=== PATIENT | male | born 1940 | race Caucasian/White ===

== ENCOUNTER 2016-09-18 02:03 | Inpatient (IN) | payer OTHER ==
[2016-09-13 10:22] LABS: URINE MICRO REVIEW NEEDED? NO; URINE SOURCE CLEAN CATCH
[2016-09-13 10:22] LABS: MANUAL DIFF NEEDED? NO
[2016-09-13 10:33] LABS: BASO% 0.4 % (0.0-0.8); EOS% 1.9 % (0.0-10.0); HEMATOCRIT 48.9 % (42.0-52.0); HEMOGLOBIN 16.8 g/dL (14.0-18.0); LYMPH% 26.9 % (20.5-51.1); MCH 31.2 PG (27-31); MCHC 34.4 g/dL (33-37); MCV 90.7 FL (81-99); MONO# 0.66 X1000 (0.11-0.59); MONO% 12.7 % (1.7-9.3); MPV 9.7 FL (7.4-10.4); NEUT% 58.1 % (42.2-75.2); PLT 192 X1000 (130-400); RBC 5.39 XMIL (4.7-6.1)
[2016-09-13 10:34] LABS: BILIRUBIN URINE NEGATIVE (NEGATIVE); BLOOD URINE NEGATIVE (NEGATIVE); COLOR YELLOW; GLUCOSE URINE NEGATIVE (NEGATIVE); LEUKOCYTES URINE NEGATIVE (NEGATIVE); NITRITE URINE NEGATIVE (NEGATIVE); PROTEIN URINE TRACE mg/dL (NEGATIVE); SP GRAVITY URINE 1.024; TURBIDITY URINE CLEAR (CLEAR); UROBILINOGEN URINE NORMAL (NORMAL)
[2016-09-13 10:36] LABS: UR EPITHELIAL CELLS <10 /HPF (<10); URINE BACTERIA NEGATIVE /HPF; URINE RBC <10 /HPF (<10); URINE WBC <10 /HPF (<10)
--- NOTE | 2016-09-13 10:36 | EKG Report ---
Test Performed on : 09/13/2016 10:01:49 AM Test Reason : PAT Blood Pressure : / mmHG Vent. Rate : 061 BPM Atrial Rate : 061 BPM P-R Int : 146 ms QRS Dur : 102 ms QT Int : 388 ms P-R-T Axes : 060 -03 007 degrees QTc Int : 390 ms Normal sinus rhythm. Minimal voltage criteria for LVH, may be normal variant Borderline ECG When compared with ECG of 19-NOV-2013 06:54, T wave inversion less evident in III T wave amplitude has increased in V1 Confirmed by Nile Jung DO ([id number]) on 09/16/2016 3:56:25 PM
[2016-09-13 10:40] LABS: INR 1.03; PROTIME 10.9 Seconds (9.2-11.7); PTT 25.9 Seconds (22.0-36.0)
[2016-09-13 10:45] LABS: CALCIUM 9.4 mg/dL (8.8-10.2); POTASSIUM 4.4 mmol/L (3.5-5.1)
[2016-09-18] MEDS ORDERED: LYRICA ONE (06:06)
[2016-09-18] MEDS ORDERED: PEPCID ONE (06:06)
[2016-09-18] MEDS ORDERED: CELEBREX ONE (06:06)
[2016-09-18] MEDS ORDERED: LR 1,000 ML ONE ×2 (06:06→10:45)
[2016-09-18] MEDS ORDERED: REGLAN ONE (06:06)
[2016-09-18] MEDS ORDERED: COLACE ONE (06:06)
[2016-09-18] MEDS ORDERED: KEFZOL 2 GM/D5W 50 ML ONE (06:07)
[2016-09-18] MEDS ORDERED: CYKLOKAPRON 1,000 MG/NS 100 ML ONE (06:40)
[2016-09-18] MEDS ORDERED: TORADOL ONE (07:10)
[2016-09-18] MEDS ORDERED: SODIUM CHLORIDE 0.9% ONE (07:11)
[2016-09-18] MEDS ORDERED: DURAMORPH ONE (07:11)
[2016-09-18] MEDS ORDERED: NEOSPORIN G.U. IRRIGANT ONE (07:11)
[2016-09-18] MEDS ORDERED: MORPHINE IV PRN (07:11)
[2016-09-18] MEDS ORDERED: MARCAINE 0.25% PF/EPI 1:200,000 ONE (07:11)
[2016-09-18] MEDS ORDERED: EXPAREL 1.3% ONE (07:12)
--- NOTE | 2016-09-18 07:17 | HISTORY AND PHYSICAL ---
CHIEF COMPLAINT: Right hip pain. HISTORY OF PRESENT ILLNESS: Mr. Kelly is a 76-year-old white male with complaint of right hip pain. Mr. Kelly states that his right hip pain has been problemsome for about 3 years now. His hip pain is affecting his activities of daily living. Images obtained of his hip reveal images consistent with advanced degenerative joint disease. He is being admitted to the hospital today for a right total hip arthroplasty. PAST MEDICAL HISTORY: Hypertension, atrial fibrillation, acid reflux, benign prostatic hypertrophy, and degenerative joint disease. SURGICAL HISTORY: Cardiac ablation, transurethral prostate resection, cataract surgery, right rotator cuff repair, bilateral total knee arthroplasty, and laminectomy. FAMILY HISTORY: Noncontributory. SOCIAL HISTORY: He is . He denies using tobacco. He reports using alcohol occasionally. CURRENT MEDICATIONS: 1. Crestor 10 mg p.o. at bedtime. 2. Lisinopril 60 mg p.o. b.i.d. 3. Diltiazem ER 240 mg p.o. b.i.d. 4. Hydrochlorothiazide 12.5 mg p.o. q.a.m. 5. Aspirin 81 mg p.o. daily. ALLERGIES: No known drug allergies. PRIMARY CARE PROVIDER: Dr. Khurram Kelly Jr. REVIEW OF SYSTEMS: HEENT: The patient reports wearing glasses. He denies any upper respiratory problems or any problem with ears, nose, throat. CARDIAC: The patient reports having cardiac ablation for atrial fibrillation in the past. He denies any heart problems since then. He denies any syncope or any chest pain. PULMONARY: The patient denies any pulmonary problems. He denies any coughing or wheezing. GASTROINTESTINAL: The patient reports having acid reflux. He denies any nausea, vomiting, diarrhea, or any other chronic GI disease. GENITOURINARY: The patient reports having a transurethral prostate resection in the past. He denies any urinary problems at this time. NEUROLOGICAL: The patient reports having bilateral feet numbness and tingling. He denies any other neurological deficits. MUSCULOSKELETAL: The patient reports having bilateral hip pain. PHYSICAL EXAMINATION: GENERAL: The patient is awake, sitting up in bed. He is articulate and able to answer questions appropriately. HEENT: Head is normocephalic, atraumatic. Pupils equal, round, and reactive to light. Nares patent. Throat without exudate. CARDIAC: S1-S2 auscultated. No murmur, rub, or gallop noted. LUNGS: Clear to auscultation bilaterally in all lung espino. GASTROINTESTINAL: Abdomen is soft, nontender, nondistended. Bowel sounds present in all quadrants. GENITOURINARY: Not examined. NEUROLOGICAL: The patient has some decreased sensation in his feet bilaterally, although he has good sensation to dull touch in all extremities. Cranial nerves 2-12 grossly intact. MUSCULOSKELETAL: On examination of the right hip, he has pain with palpation as well as passive range of motion of the right hip. IMPRESSION: Right hip osteoarthritis. PLAN: Right hip total hip arthroplasty, anterior. The risks, benefits, and alternatives of the surgery were discussed with the patient including risk of infection, anesthesia, bleeding, damage to blood vessels, nerves, tendons, ligaments, and other imponderables were discussed, and the patient agrees to proceed with surgery at this time. Dictated by HENRIQUE Vegas for Tom Nguyen MD
[2016-09-18] MEDS ORDERED: LR 500 ML ONE (10:45)
[2016-09-18] MEDS ORDERED: NS 1,000 ML ONE (10:55)
--- NOTE | 2016-09-18 11:21 | OPERATIVE NOTE ---
PROCEDURE DATE: 09/18/2016 PREOPERATIVE DIAGNOSIS: Degenerative joint disease, right hip. POSTOPERATIVE DIAGNOSIS: Degenerative joint disease, right hip. PROCEDURE: Right anterior hip replacement. SURGEON: Stefani Nguyen MD. ASSISTING: Terrell Ingram. ANESTHESIA: General. COMPLICATION: None. PROCEDURE IN DETAIL: This 76-year-old male presents for a right anterior hip replacement. Risks, benefits, and no guarantees were discussed, and he is willing to proceed. He was taken to the operating room and satisfactory anesthesia obtained. The right hip was prepped and draped in the usual sterile fashion. A time-out was taken to confirm operative site, procedure, and patient. An anterior approach to the right hip was undertaken through an incision starting roughly 1 cm lateral and distal to the anterior superior iliac spine, and carried distally for roughly 10-12 cm. The fascia of the tensor fascia john was identified and opened, and blunt dissection utilized along the inner membrane down to the anterior hip capsule. Retractors were placed over the superior and inferior aspect of the femoral neck, and the femoral capsule incised longitudinally. The superior capsule was excised for mobilization. Osteotomy was made roughly 8-10 mm above the lesser trochanter and the femoral head excised. Reaming of the acetabulum was undertaken up to a 59 reamer. A [employer] [place] coated 60 outer diameter cup was then impacted into the acetabulum under fluoroscopic guidance at roughly 5-10 degrees of anteversion and 45 degrees of abduction. This was fully seated with initial press-fit fixation. An additional 25 length screw was placed in the 12 o'clock position of the cup for additional security, followed by a 36 inner diameter 0 degree polyethylene liner. This was impacted with secure fixation. The [place] table was then used to externally rotate and extend the femur for broaching of the proximal femur. Sequential broaching up to a DePuy [place] size 16 stem was undertaken with good rotational and axial stability. High offset geometry was utilized with a +5, 36 head with good stability. The trial broach was removed. Then a size 16 high offset [place] stem impacted into the proximal femur with secure axial and rotational stability. A ceramic 36 head with a +5 neck taper was impacted on this and the hip reduced. Range of motion revealed no anterior or posterior instability and good zoroastrianism of leg lengths using the fluoroscopic imaging. The wound was copiously irrigated and drained with a Hemovac drain. The joint capsule and skin were injected with Exparel for pain management. The fascia of the tensor was repaired with a running 0 Vicryl, the subcutaneous with 2-0 Vicryl, and the skin with skin grace. Sterile dressings were applied. The patient was recovered from anesthesia and transferred to the recovery room in stable condition. No intraoperative complications were noted. Instrument count and sponge count were correct at the time of closure.
[2016-09-18] MEDS ORDERED: CYKLOKAPRON 1,000 MG in NS 100 ML IV ONE (13:30)
[2016-09-18] MEDS ORDERED: MORPHINE ONE (14:57)
[2016-09-18] MEDS ORDERED: DEMEROL ONE (14:58)
[2016-09-18] MEDS ORDERED: DIPRIVAN 1% ONE (14:59)
[2016-09-18] MEDS ORDERED: VERSED ONE (14:59)
[2016-09-18] MEDS ORDERED: FENTANYL ONE (15:01)
[2016-09-18] MEDS: KEFZOL 1 GM/D5W 50 ML IV SCH ×2 (15:12→22:40)
[2016-09-18] MEDS ORDERED: SODIUM CHLORIDE 0.9% 40 ML ONE (15:14)
[2016-09-18] MEDS ORDERED: NEOSTIGMINE ONE (15:14)
[2016-09-18] MEDS ORDERED: EPHEDRINE ONE (15:14)
[2016-09-18] MEDS ORDERED: NORCURON ONE (15:14)
[2016-09-18] MEDS ORDERED: DECADRON ONE (15:15)
[2016-09-18] MEDS ORDERED: OFIRMEV 1000 MG/ISOTONIC SOLN 100 ML ONE (15:15)
[2016-09-18] MEDS ORDERED: QUELICIN (DOSE) ONE (15:15)
[2016-09-18] MEDS ORDERED: ROBINUL ONE (15:15)
[2016-09-18] MEDS ORDERED: LR 2,000 ML ONE (15:15)
[2016-09-18] MEDS ORDERED: HESPAN 500 ML ONE (15:15)
[2016-09-18] MEDS ORDERED: XYLOCAINE-MPF 2% ONE (15:15)
[2016-09-18] MEDS: NORCO-10 PO PRN ×3 (15:16→22:51)
[2016-09-18] MEDS: ASPIRIN PO SCH (16:09)
[2016-09-18] MEDS: PRINIVIL PO SCH ×2 (16:10→21:02)
[2016-09-18] MEDS: CARDIZEM CD PO SCH ×2 (16:10→21:02)
[2016-09-18] MEDS: HYDROCHLOROTHIAZIDE PO SCH (16:10)
[2016-09-18] MEDS: COLACE PO SCH ×2 (16:11→21:01)
[2016-09-18] MEDS: NS 1,000 ML IV SCH ×2 (16:43→21:02)
[2016-09-18] MEDS ORDERED: CRESTOR PO SCH (21:00)
[2016-09-18] MEDS: PERIDEX MT SCH (21:01)
[2016-09-19] MEDS: NORCO-10 PO PRN ×3 (00:58→08:41)
[2016-09-19 05:41] LABS: HEMATOCRIT 32.5 % (42.0-52.0); HEMOGLOBIN 10.8 g/dL (14.0-18.0)
[2016-09-19] MEDS ORDERED: XARELTO PO SCH (06:00)
[2016-09-19 06:12] LABS: CALCIUM 7.8 mg/dL (8.8-10.2); POTASSIUM 4.1 mmol/L (3.5-5.1)
[2016-09-19] MEDS: HYDROCHLOROTHIAZIDE PO SCH (08:40)
[2016-09-19] MEDS: ASPIRIN PO SCH (08:41)
[2016-09-19] MEDS: COLACE PO SCH (08:41)
[2016-09-19] MEDS: PRINIVIL PO SCH (08:42)
[2016-09-19] MEDS: CARDIZEM CD PO SCH (08:42)
[2016-09-19] MEDS: PERIDEX MT SCH (08:42)
[2016-09-19] MEDS ORDERED: CELEBREX PO SCH (09:00)
[2016-09-19] MEDS: NS 1,000 ML IV SCH ×2 (09:04→16:01)
[2016-09-19 12:17] VITALS: BP 96/50
--- NOTE | 2016-09-19 15:40 | DISCHARGE SUMMARY ---
ADMISSION DATE: 09/18/2016 DISCHARGE DATE: 09/19/1976 ADMITTING DIAGNOSIS: 1. Degenerative joint disease, right hip. ADDITIONAL DIAGNOSES: 1. Hypertension. 2. Atrial fibrillation. 3. Acid reflux. 4. Benign prostatic hypertrophy. DISCHARGE DIAGNOSES: Degenerative joint disease of the right hip, including the above additional diagnoses. ADMITTING HISTORY AND HOSPITAL COURSE: Mr. Kelly is a 76-year-old white male with a history of right hip pain. Mr. Kelly is having hip pain for about 3 years. He was admitted to the hospital 09/18/2016 for a right total hip arthroplasty. After his surgery, he remained afebrile, and his vital signs remained stable. He shows no signs or symptoms of infection or deep vein thrombosis. He is currently ambulating 250 feet with a front wheel walker. DISCHARGE MEDICATIONS: 1. Crestor 10 mg p.o. at bedtime. 2. Lisinopril 60 mg p.o. b.i.d. 3. Diltiazem ER 240 mg p.o. b.i.d. 4. Hydrochlorothiazide 12.5 mg p.o. q.a.m. 5. Xarelto 10 mg p.o. daily for 21 days. 6. [place] 10 1-2 p.o. q. 4-6 hours p.r.n. for pain. DISCHARGE INSTRUCTIONS: Mr. Kelly will be discharging to his home today. His will be there to assist him. He will be going home with home health physical therapy service. I have discussed the new medications of Xarelto and the [place] pain medication that he will be going home on, and he will be resuming his previous home medications. I discussed with him to let us know if he has any worsening signs or symptoms, any discharge from the incision, fever, chills, nausea and vomiting. Instructed him to call us if he has any needs in the interim. He will need to follow up with Dr. Nguyen in about 10 days to have his grace removed, and have a followup appointment. If he needs anything in the meantime, he can call us at the office. Dictated by HENRIQUE Vegas for Tom Nguyen MD
== END 2016-09-19 16:40 | disposition home health service (06) | DRG 470 ==
LOC: SURHOLD 02:03 → 4N 12:04
PROVIDERS: ADMIT Orthopaedic Surgery Adult Reconstructive Orthopaedic Surgery; ATTEND Orthopaedic Surgery Adult Reconstructive Orthopaedic Surgery
PROC: 0SR904A Replacement of Right Hip Joint with Ceramic on Polyethylene Synthetic Substitute, Uncemented, Open Approach (ICD-10-PCS; principal; 2016-09-18 07:16)
DX: M16.11 Unilateral primary osteoarthritis, right hip (principal); I10 Essential (primary) hypertension; Z96.653 Presence of artificial knee joint, bilateral; Z79.82 Long term (current) use of aspirin; Z79.899 Other long term (current) drug therapy
CPT/HCPCS: 76000; 80048; 81001; 85014; 85018; 85025; 85610; 85730; 86850; 86900; 86901; 88304; 88311; 93005; 93010; 94761; 94799; C9290; J0131; J0330; J0690; J1100; J1885; J2175; J2250; J2270; J2274; J3010; J7030; J7120; S0020; 97110-GP; 97116-GP; 97530-GP; J2710